=== PATIENT | male | born 1990 | race Caucasian/White ===

== ENCOUNTER 2022-04-07 10:12 | Outpatient (REF) | payer SELFPAY | END 2022-04-07 10:13 | disposition home or self-care (01) | LOC: LBN 10:12 | PROVIDERS: PCP Family Medicine; Visit Provider Physician Assistant | DX: J02.9 Acute pharyngitis, unspecified (principal) | CPT/HCPCS: 87070 ==

== ENCOUNTER 2022-07-04 15:30 | Emergency (ER) | payer BC, SELFPAY ==
[2022-07-04 15:41] VITALS: BP 133/67; PULSE 125; RESP 20; TEMP 38.3; O2SAT 98
[2022-07-04 16:00] VITALS: PULSE 92
--- NOTE | 2022-07-04 16:00 | DI.CT_ITS ---
Exam(s) CT ABDOMEN PELVIS W EXAM: CT ABDOMEN PELVIS W CLINICAL HISTORY: diarrhea, lower abdominal pain TECHNIQUE: Imaging Protocol: Axial computed tomography images with coronal and sagittal reformatted images were created and reviewed CONTRAST MATERIAL: Intravenous: Omnipaque 350 Contrast volume:100 mL Oral: No COMPARISON: No exams were available for comparison FINDINGS: ABDOMEN: Lung Bases: Normal where visualized. There is a small hiatal hernia. Liver: There is slight decreased attenuation of the liver suggesting fatty infiltration. No measurab le mass. Portal, Superior Mesenteric, and Splenic Veins: Unremarkable. Gallbladder and Biliary Tract: No radiodense calculus or dilation. Pancreas: Normal density, no abnormal calcifications or inflammatory process. Spleen: Normal. Adrenals: No masses seen. Kidneys: Normal size, contour and axis. No radiodense stones or obstructive uropathy. No masses seen. Abdominal Aorta: Abdominal portion non-dilated. Bowel: There are few scattered diverticula in the colon but no evidence of acute diverticulitis. The re is fluid seen in portions of the colon and small bowel which can be seen with a diarrheal illness. There is no evidence of bowel obstruction. No significant bowel wall thickening is present. Appen gustavo is unremarkable. Peritoneal Cavity: No ascites, collection or mesenteric inflammatory response. No free air. Lymph Nodes: There are mildly enlarged lymph nodes seen in the mesentery which are likely reactive. Bones: Within normal limits for the patient's age. Soft Tissues: Unremarkable. PELVIS: Bladder: Symmetric distention, no gross wall thickening. Reproductive Organs: Unremarkable as visualized. Lymph Nodes: No significant inguinal or iliac adenopathy. Bones: Within normal limits for the patient's age. IMPRESSION: 1. Fluid-filled loops of small and large intestine are noted which can be seen with a diarrheal illne ss. 2. Mildly enlarged mesenteric lymph nodes which are likely reactive. Mesenteric adenitis cannot be e xcluded. 3. No evidence of bowel obstruction or bowel wall thickening. RADIATION DOSE DELIVERED: 1,190.43mGy.cm Total DLP DATA REPOSITORY: All CT scans at this facility are submitted to the National Radiology Data Registry (NRDR) Dose Index Registry (DIR) with the [employer] (ACR). RADIATION OPTIMIZATION: All CT scans at this facility use at least one of these dose optimization te chniques: automated exposure control; mA and/or kV adjustment per patient size (includes targeted exa ms where dose is matched to clinical indication); or iterative reconstruction.
[2022-07-04 16:16] LABS: Abs Immature Grans 0.05 10^3/uL (0.0-0.06); Absolute Basophil Count 0.03 10^3/uL (0.0-0.2); Absolute Eosinophil Count 0.07 10^3/uL (0.0-0.7); Absolute Monocyte Count 1.01 10^3/uL (0.1-0.8); Absolute Neutrophil Count 12.29 10^3/uL (1.2-6.7); Basophils % 0.2; Eosinophils % 0.5; HCT 45.1 % (40.0-50.0); HGB 15.7 g/dL (13.5-17.5); Immature Grans % 0.4; Lymphocytes % 2.7; MCH 30.3 pg (27.0-33.0); MCHC 34.8 % (32.0-36.0); MCV 87 fL (80-95); MPV 10.8 fL (8.0-11.0); Monocytes % 7.3; Neutrophils % 88.9; Platelet Count 211 10^3/uL (130-400); RBC 5.19 10^6/uL (4.36-5.78); RDW 12.7 % (11.8-14.1); RDW-SD 40.7 fL; WBC 13.83 10^3/uL (4.4-10.8)
[2022-07-04 16:17] LABS: Absolute Lymphocyte Count 0.37 10^3/uL (1.2-3.4)
--- NOTE | 2022-07-04 16:17 | ED.GENADUL_ITS ---
Discharge Plan Disposition Patient Disposition: Home Condition: Stable Discharge Details Clinical Impression: Diarrhea Primary Care Provider: Ar Goldberg ED Provider: Rasheed Hubbard Home Meds and New Rx's Prescriptions: New ciprofloxacin HCl 500 mg tablet 500 mg PO BID Qty: 10 0RF Continued escitalopram oxalate [Lexapro] 10 mg tablet 10 mg PO HS Qty: 90 1RF Discharge Instructions Instructions: Acute Diarrhea (ED), Hypomagnesemia (ED) Additional Instructions: follow up with your primary care provider within 1 week if symptoms are not improving if you feel more ill, have severe abdominal pain or persistent vomiting return to the emergency department Stand Alone Forms: Work Release Medical Decision Making 31 yo male who denies chronic medical problems comes in with chief complaint of diarrhea since Monday and intermittent abdominal cramping and today started to have fevers. Denies recent travel, antibiotic use or known sick contacts. Went to [facility] care earlier and actually brought a stool sample to the lab for fecal bacterial pathogen testing. HE is hemodynamically stable on arrival with a fever, hr on my exam is 98. He is in no distress on exam caox4 speaking in full sentences. HE is tender in the llq with deep palpation, no right lower abdominal tenderness or upper abdominal tenderness and no guarding or distention. Suspect viral gastroenteritis, will evaluate further with cbc, cmp, lipase and obtain ct abd/pelvis to evaluate for diverticulitis labs show mag of 1.5 and otherwise benign labs. He is tolerating po, ct without concerning findings other than evidence of gastroenteritis. He is stable for d/c, will start on cipro since he's had almost a week of symptoms. Will f/u with his pcp and return precautions given Differential Diagnosis Differential Diagnosis: diverticulitis, colitis Imaging Data Radiologic Study: Attestation: I personally reviewed and interpreted this imaging study as follows: Imaging: CT Scan Radiologist's impression: IMPRESSION: 1. No evidence of bowel obstruction or significant bowel wall thickening. 2. Fluid noted throughout the small and large intestines, likely related to reported diarrhea. Clinical correlation recommended. Lab Data Lab results reviewed: Yes I reviewed the patient's lab results. HPI General Mode of arrival: ambulatory . Date/Time Provider Initiated Documentation: 07/04/22 15:48 . Limitations to Documentation: no limitations . Information obtained by: patient . History of Present Illness 31 year old M presents to the emergency department with the chief complaint of diarrhea, described as moderate, Patient started experiencing this day(s) (5) and it has been constant. No relieving factors improve symptom(s), No exacerbating factors reported . Patient notes fever/chills. Patient did receive the following treatments prior to arrival, none Related Data Home Medications Medication Instructions Recorded Confirmed escitalopram oxalate 10 mg tablet 10 mg PO HS #90 tabs 03/07/22 07/04/22 (Lexapro) ciprofloxacin HCl 500 mg tablet 500 mg PO BID #10 tabs 07/04/22 Previous Rx's Medication Instructions Recorded escitalopram oxalate 10 mg tablet 10 mg PO HS #90 tabs 03/07/22 (Lexapro) ciprofloxacin HCl 500 mg tablet 500 mg PO BID #10 tabs 07/04/22 Allergies Allergy/AdvReac Type Severity Reaction Status Date / Time Sulfa (Sulfonamide Allergy Unknown Unverified 07/04/22 11:21 Antibiotics) General Stated Complaint: Nausea/Vomit/Diar PIERRE: 3 Review of Systems All systems reviewed & are unremarkable except as noted in HPI and below Constitutional Constitutional: Denies chills, Denies fever(s) and Denies weakness Cardiovascular Cardiovascular: Denies chest pain and Denies dyspnea Respiratory Respiratory: Denies cough and Denies dyspnea Gastrointestinal Gastrointestinal: Denies nausea and Denies vomiting Musculoskeletal Musculoskeletal: Denies joint swelling Neurologic Neurologic: Denies weakness PFSH All Active Problems Diarrhea (Acute) Anxiety (Chronic) Encounter for annual physical exam (Acute) Suicidal ideation (Acute 08/16/17) Family history of suicide (Acute 08/30/17) father Depression (Acute 08/30/17) Alcohol abuse (Acute 08/30/17) Family History Mother No problems noted. Father , 56 Alcohol abuse Depression Sister No problems noted. Brother Substance abuse Maternal Grandfather Diabetes Heart disease Hypertension Paternal Grandfather Alcohol abuse Maternal Grandmother No problems noted. Paternal Grandmother No problems noted. Social History Smoking/Tobacco Use Status: Current every day Tobacco Type: cigarettes Quit status: considering quitting Second Hand Exposure: Yes Smoking risk assessment performed?: Yes Alcohol Intake: former Drug use: Daily Substance use type: marijuana Caregiver/Support person: No Household members: significant other and children Housing: house Communication Needs: Corrective Lenses Do you need help understanding health information?: Never Pets and animals: Yes Pets and animals: cat(s), dog(s) and farm animals Sexually active: Yes Do you think of yourself as: straight/heterosexual Current gender identity: male What is your relationship status?: living with partner How often do you talk on the phone with friends or family?: once per week How often do you get together with friends or relatives?: once per week Do you belong to any clubs or organized social groups?: no Panel score (0-1 are the most socially isolated patients): 1 Duration: 15-30 minutes/day Frequency: 1-2 times per week Dinone/Islam: Scientologist Special dionne needs: No Drive intox or ride w/intox automobile drivers: No Do you feel safe in your relationship?: Yes Exam Const General: no acute distress Orientation: alert HENMT Head: normal to inspection Ears: external ears normal General nose exam: external nose normal Mouth: moist mucous membranes Eyes General: appearance normal, both eyes and all related structures Neck Neck: normal visual inspection Resp Effort & Inspection: normal respiratory effort and able to speak in complete sentences Cardio Rate: regular rate GI Palpation: soft, not firm and no guarding Skin General skin exam: no rashes or lesions noted Neuro General: patient alert and patient oriented x3 Extrem General: normal to inspection Psych Mental Status: mental status grossly normal Course Vital Signs Vital signs: Vital Signs Temperature 38.3 C H 07/04/22 15:41 Pulse 125 H 07/04/22 15:41 Respiratory Rate 20 07/04/22 15:41 Blood Pressure 133/67 07/04/22 15:41 Pulse Oximetry 98 07/04/22 15:41 Temperature 38.3 C H 07/04/22 15:41 Temperature Source Tympanic 07/04/22 15:41 Pulse 92 H 07/04/22 16:00 Respiratory Rate 20 07/04/22 15:41 Respiratory Effort Normal, Non-Labored 07/04/22 15:56 Blood Pressure 133/67 07/04/22 15:41 Blood Pressure Position Sitting 07/04/22 15:41 Pulse Oximetry 98 07/04/22 15:41 Oxygen Delivery Method Room Air 07/04/22 15:41 Oxygen Flow Rate 0 07/04/22 15:41 Lab/Test Results Lab/Test Results: Laboratory Tests Range/Units 07/04/22 15:55 WBC (4.4-10.8) 10^3/uL 13.83 H RBC (4.36-5.78) 10^6/uL 5.19 Hgb (13.5-17.5) g/dL 15.7 Hct (40.0-50.0) % 45.1 MCV (80-95) fL 87 MCH (27.0-33.0) pg 30.3 MCHC (32.0-36.0) % 34.8 RDW (11.8-14.1) % 12.7 Plt Count (130-400) 10^3/uL 211 MPV (8.0-11.0) fL 10.8 Immature Gran % 0.4 Neutrophils % 88.9 Lymphocytes % 2.7 Monocytes % 7.3 Eosinophils % 0.5 Basophils % 0.2 Nucleated RBC % (0.0-0.3) % 0.0 Absolute Neutrophils (1.2-6.7) 10^3/uL 12.29 H Absolute Lymphocytes (1.2-3.4) 10^3/uL 0.37 L Absolute Monocytes (0.1-0.8) 10^3/uL 1.01 H Absolute Eosinophils (0.0-0.7) 10^3/uL 0.07 Absolute Basophils (0.0-0.2) 10^3/uL 0.03
[2022-07-04 16:32] LABS: ALT 69 U/L (16-63); AST 29 U/L (15-37); Albumin 4.3 g/dL (3.4-5.0); Alkaline Phosphatase 75 U/L (46-116); Anion Gap 8.5 mmol/L (3-11); BUN 14 mg/dL (7-18); Bilirubin, Total 0.9 mg/dL (0.2-1.0); CO2 27.5 mmol/L (21.0-32.0); Calcium 9.2 mg/dL (8.5-10.1); Chloride 100 mmol/L (98-107); Estimated GFR 103.19 (mL/min/1.73m2); Glucose 114 mg/dL (74-106); Lipase 16 U/L (16-77); Magnesium 1.5 mg/dL (1.8-2.4); Potassium 3.4 mmol/L (3.5-5.1); Sodium 136 mmol/L (136-145)
[2022-07-04 16:46] LABS: COVID-19 PCR Negative (Negative); Influenza A PCR Negative (Negative); Influenza B PCR Negative (Negative); RSV PCR Negative (Negative)
[2022-07-04 17:00] LABS: Source Nasopharynx
[2022-07-04] MEDS: Normal Saline - Diluent 50 ML VIAL IJ (17:01)
[2022-07-04] MEDS: Normal Saline Flush 10 ML SYR IVP (17:01)
[2022-07-04] MEDS: Omnipaque 350 MG/ML 100 ML BTL IJ (17:01)
--- NOTE | 2022-07-04 17:39 | DI.VRAD_ITS ---
PROCEDURE INFORMATION: Exam: CT Abdomen And Pelvis With Contrast Exam date and time: 07/04/2022 5:05 PM Age: 31 years old Clinical indication: Diarrhea, lower abdominal pain TECHNIQUE: Imaging protocol: Computed tomography of the abdomen and pelvis with contrast. Radiation optimization: All CT scans at this facility use at least one of these dose optimization techniques: automated exposure control; mA and/or kV adjustment per patient size (includes targeted exams where dose is matched to clinical indication); or iterative reconstruction. Contrast material: OMNIPAQUE 350; Contrast volume: 100 ml; Contrast route: INTRAVENOUS (IV); COMPARISON: No relevant prior studies available. FINDINGS: Liver: Unremarkable liver. No mass identified. Gallbladder and bile ducts: The gallbladder is unremarkable. No calcified stones. No ductal dilation. Pancreas: No ductal dilation. No pancreatic lesion seen. Spleen: No splenomegaly. Adrenal glands: The adrenal glands are unremarkable. No defined mass. Kidneys and ureters: The kidneys are unremarkable. No hydronephrosis. Stomach and bowel: There is fluid noted throughout the small and large intestines. No evidence of bowel obstruction. No significant bowel wall is both of hours. Appendix: No evidence of appendicitis. Intraperitoneal space: No free air. No significant fluid collection. Vasculature: No abdominal aortic aneurysm. Lymph nodes: No enlarged lymph nodes. Urinary bladder: Unremarkable as visualized. Reproductive: Unremarkable as visualized. Bones/joints: No acute fracture. A disc bulge is noted at the L5-S1 level asymmetric to the right. Soft tissues: Unremarkable. IMPRESSION: 1. No evidence of bowel obstruction or significant bowel wall thickening. 2. Fluid noted throughout the small and large intestines, likely related to reported diarrhea. Clinical correlation recommended. Dictated and Authenticated by: Sana Hernandez MD. Ordering:KP Iqbal MD
[2022-07-04] MEDS: Normal Saline 1,000 ML 1000 ML IV (18:06)
[2022-07-04 18:45] VITALS: BP 125/74; PULSE 97; RESP 18; TEMP 38; O2SAT 99
[2022-07-04] MEDS: Ciprofloxacin 500 MG TAB PO (18:46)
== END 2022-07-04 18:46 | disposition home or self-care (01) ==
PROVIDERS: Emergency Provider Emergency Medicine; PCP Family Medicine
DX: R19.7 Diarrhea, unspecified (principal); R11.2 Nausea with vomiting, unspecified
CPT/HCPCS: 36415; 80053; 83690; 87637; 96360; 99285; 74177; 83735; 85025; 99283; J3490

== ENCOUNTER 2022-07-04 15:50 | Outpatient (REF) | payer BC, SELFPAY ==
[2022-07-06 13:10] LABS: Campylobacter PCR Negative (Negative); Salmonella PCR Negative (Negative); Shiga Toxin PCR Negative (Negative); Shigella/Enteroinvasive Ecoli Negative (Negative)
== END 2022-07-04 15:51 | disposition home or self-care (01) ==
LOC: LBN 15:50
PROVIDERS: PCP Family Medicine; Visit Provider Nurse Practitioner Family
DX: R19.7 Diarrhea, unspecified (principal)
CPT/HCPCS: 87505; 87177

== ENCOUNTER 2023-10-05 09:44 | Inpatient (IN) | payer BC, SELFPAY ==
[2023-10-05] VITALS (25 sets, daily range): BP systolic 91–135; BP diastolic 35–70; PULSE 67–128; RESP 12–43; TEMP 36.5–37; O2SAT 93–100; BMI 33.2
--- NOTE | 2023-10-05 10:15 | DI.CT_ITS ---
Exam(s) CT ABDOMEN PELVIS W EXAM: CT ABDOMEN PELVIS W CLINICAL HISTORY: rectal pain 2 weeks TECHNIQUE: Imaging Protocol: Axial computed tomography images with coronal and sagittal reformatted images were created and reviewed. CONTRAST MATERIAL: Intravenous: Omnipaque 350 Contrast volume:100 mL Oral: No COMPARISON: CT CT ABDOMEN PELVIS W from 07/04/2022 FINDINGS: ABDOMEN: Lung Bases: Normal where visualized. Liver: Normal density. No measurable mass. Portal, Superior Mesenteric, and Splenic Veins: Unremarkable. Gallbladder and Biliary Tract: No radiodense calculus or dilation. Pancreas: Normal density, no abnormal calcifications or inflammatory process. Spleen: Normal. Adrenals: No masses seen. Kidneys: Normal size, contour and axis. No radiodense stones or obstructive uropathy. No masses seen. Abdominal Aorta: Abdominal portion non-dilated. Bowel: No obstruction or bowel wall thickening. There is a 4.7 by 2.2 by 2.9 cm fluid collection post erior to the rectum consistent with an abscess. There is a thin enhancing wall present. There is a normal appendix. Peritoneal Cavity: No ascites, collection or mesenteric inflammatory response. No free air. Lymph Nodes: Within normal limits. Bones: Within normal limits for the patient's age. Soft Tissues: Unremarkable. PELVIS: Bladder: Symmetric distention, no gross wall thickening. Reproductive Organs: Unremarkable as visualized. Lymph Nodes: Within normal limits. Bones: Within normal limits for the patient's age. IMPRESSION: 1. 4.7 x 2.2 x 2.9 cm posterior perirectal abscess. 2. Findings were discussed with Dr. Jolly at 11:08 a.m. on 10/05/2023. RADIATION DOSE DELIVERED: Total DLP DATA REPOSITORY: All CT scans at this facility are submitted to the National Radiology Data Registry (NRDR) Dose Index Registry (DIR) with the [employer] (ACR). RADIATION OPTIMIZATION: All CT scans at this facility use at least one of these dose optimization te chniques: automated exposure control; mA and/or kV adjustment per patient size (includes targeted exa ms where dose is matched to clinical indication); or iterative reconstruction.
--- NOTE | 2023-10-05 10:23 | W.ED.GENAD ---
Discharge Plan Disposition Patient Disposition: Admit to [facility] Condition: Serious Discharge Details Chief Complaint: GenMedical Clinical Impression: Perirectal abscess Primary Care Provider: Ar Goldberg ED Provider: Kali Jolly Home Meds and New Rx's Prescriptions: No Action hydrocortisone acetate [Anusol-HC] 25 mg suppository 25 mg ME BID PRN (Reason: hemorrhoids) Qty: 24 1RF lorazepam 1 mg tablet 1 mg PO DAILY PRN (Reason: panic attack(s)) Qty: 10 0RF venlafaxine 150 mg tablet extended release 24hr 300 mg PO DAILY Qty: 60 2RF HPI General Mode of arrival: ambulatory. Date/Time Provider Initiated Documentation: 10/05/23 10:02. Limitations to Documentation: no limitations. Information obtained by: patient. HPI Narrative: 33-year-old male here with rectal pain. Patient has a history of internal hemorrhoids. Over the past 2 weeks has had progressively worsening rectal pain. Hydrocortisone cream and suppository treatment not helping. No associated discharge. No bleeding. No fevers. No abdominal pain. Patient was seen at [facility] and had digital rectal exam and was exquisitely tender and sent to the ED for further evaluation including imaging. Related Data Home Medications ?Medication ?Instructions ?Recorded ?Confirmed hydrocortisone acetate 25 mg 25 mg ME BID PRN hemorrhoids #24 ea 06/22/23 10/05/23 rectal suppository (Anusol-HC) lorazepam 1 mg tablet 1 mg PO DAILY PRN panic attack(s) 07/24/23 10/05/23 #10 tabs venlafaxine 150 mg tablet,extended 300 mg (2 x 150 mg) PO DAILY PTSD 09/19/23 10/05/23 release 24 hr #60 tabs Previous Rx's ?Medication ?Instructions ?Recorded hydrocortisone acetate 25 mg 25 mg ME BID PRN hemorrhoids #24 ea 06/22/23 rectal suppository (Anusol-HC) lorazepam 1 mg tablet 1 mg PO DAILY PRN panic attack(s) 07/24/23 #10 tabs venlafaxine 150 mg tablet,extended 300 mg (2 x 150 mg) PO DAILY PTSD 09/19/23 release 24 hr #60 tabs Allergies Allergy/AdvReac Type Severity Reaction Status Date / Time Sulfa (Sulfonamide Allergy Unknown Unknown Unverified 10/05/23 09:52 Antibiotics) General Stated Complaint: GenMedical PIERRE: 3 Review of Systems Constitutional Constitutional: Denies fever(s) Gastrointestinal Gastrointestinal: Reports as per HPI Exam Const General: cooperative and no acute distress HENVT Mouth: moist mucous membranes Eyes Conjunctivae: normal conjunctivae Sclera: normal sclerae Resp Auscultation: clear to auscultation bilaterally, no rales, no rhonchi and no wheezes Cardio Rate: regular rate and not tachycardic Rhythm: regular rhythm GI Palpation: soft, not firm, no guarding, no masses, not rigid and nontender Rectal Exam: No fissure and hemorrhoids (small non thrombosed external hemorrhoid present and minimally tender) Skin General skin exam: no rashes or lesions noted Neuro General: patient alert, patient awake and tone normal Course Vital Signs Vital signs: Vital Signs Temperature 36.9 C 10/05/23 09:48 Pulse 84 10/05/23 09:48 Respiratory Rate 14 10/05/23 09:48 Blood Pressure 126/67 10/05/23 09:48 Pulse Oximetry 100 10/05/23 09:48 Temperature 36.9 C 10/05/23 10:10 Temperature Source Temporal Artery Scan 10/05/23 10:10 Pulse 84 10/05/23 10:10 Respiratory Rate 12 10/05/23 10:11 Respiratory Effort Normal, Non-Labored 10/05/23 10:16 Respiratory Depth Normal 10/05/23 10:11 Respiratory Pattern Normal 10/05/23 10:11 Blood Pressure 126/67 10/05/23 10:10 Blood Pressure Position Sitting 10/05/23 10:10 Pulse Oximetry 100 10/05/23 10:10 Oxygen Delivery Method Room Air 10/05/23 10:10 Oxygen Flow Rate 0 10/05/23 10:10 Pain Level 6 10/05/23 10:10 Comment took ibuprofen this morning 10/05/23 10:10 Medical Decision Making 1032 -- 33yo male with rectal pain worsening over the past 2 weeks. External hemorrhoid is present but I am concerned about the potential for deep space infection given exam and express care. Patient has no systemic symptoms. Patient is afebrile and hemodynamically stable. Plan to obtain CT of the abdomen and pelvis to assess for acute surgical pathology including perirectal abscess. 1204 --CT abdomen pelvis was interpreted by radiology: Perirectal abscess 5 x 3 cm. I called and spoke with on-call general surgeon, Dr. Sánchez, discussed ED presentation course, she will evaluate the patient with plan for OR intervention. I will initiate antibiotic coverage with Zosyn 4.5 g IV. Lab Data Lab results reviewed: Yes I reviewed the patient's lab results. Labs: Laboratory Tests Range/Units 10/05/23 10:04 WBC (4.4-10.8) 10^3/uL 17.53 H RBC (4.36-5.78) 10^6/uL 4.62 Hgb (13.5-17.5) g/dL 14.5 Hct (40.0-50.0) % 43.1 MCV (80-95) fL 93 MCH (27.0-33.0) pg 31.4 MCHC (32.0-36.0) % 33.6 RDW (11.8-14.1) % 13.2 Plt Count (130-400) 10^3/uL 265 MPV (8.0-11.0) fL 10.4 Immature Gran % % 0.3 Neutrophils % % 79.4 Lymphocytes % % 10.1 Monocytes % % 9.6 Eosinophils % % 0.3 Basophils % % 0.3 Nucleated RBC % (0.0-0.3) % 0.0 Absolute Neutrophils (1.2-6.7) 10^3/uL 13.92 H Absolute Lymphocytes (1.2-3.4) 10^3/uL 1.77 Absolute Monocytes (0.1-0.8) 10^3/uL 1.68 H Absolute Eosinophils (0.0-0.7) 10^3/uL 0.05 Absolute Basophils (0.0-0.2) 10^3/uL 0.05 RBC Morphology Normal Sodium (136-145) mmol/L 142 Potassium (3.5-5.1) mmol/L 3.8 Chloride (98-107) mmol/L 103 Carbon Dioxide (21.0-32.0) mmol/L 28.3 Anion Gap (3-11) mmol/L 10.7 BUN (7-18) mg/dL 15 Creatinine (0.70-1.30) mg/dL 1.0 Est GFR (CKD-EPI 2020) (mL/min/1.73m2) 101.92 Glucose (74-106) mg/dL 95 Calcium (8.5-10.1) mg/dL 9.3 Total Bilirubin (0.2-1.0) mg/dL 0.45 AST (15-37) U/L 19 ALT (16-63) U/L 34 Alkaline Phosphatase (46-116) U/L 84 Total Protein (6.4-8.2) g/dL 8.1 Albumin (3.4-5.0) g/dL 4.1 Quality:SDOH Health Related Social Needs: No Data to Display PFSH All Active Problems Perirectal abscess (Acute) External hemorrhoid (Acute) PTSD (post-traumatic stress disorder) (Acute) Adjustment disorder (Chronic) Anxiety (Chronic) Encounter for annual physical exam (Acute) Suicidal ideation (Acute 08/16/17) Family history of suicide (Acute 08/30/17) father Depression (Acute 08/30/17) Alcohol abuse (Acute 08/30/17) Family History Mother No problems noted. Father , 56 Alcohol abuse Depression Sister No problems noted. Brother Substance abuse Maternal Grandfather Diabetes Heart disease Hypertension Paternal Grandfather Alcohol abuse Maternal Grandmother No problems noted. Paternal Grandmother No problems noted. Social History Smoking/Tobacco Use Status: Current every day Tobacco Type: cigarettes Tobacco: How many years used: 15 Quit status: considering quitting Second Hand Exposure: Yes Smoking risk assessment performed?: Yes Alcohol Intake: former Drug use: Daily Substance use type: marijuana Caregiver/Support person: No Household members: significant other and children Housing: house Communication Needs: Corrective Lenses Do you need help understanding health information?: Never Pets and animals: Yes Pets and animals: cat(s), dog(s) and farm animals Sexually active: Yes Do you think of yourself as: straight/heterosexual Current gender identity: male What is your relationship status?: living with partner How often do you talk on the phone with friends or family?: once per week How often do you get together with friends or relatives?: once per week Do you belong to any clubs or organized social groups?: no Panel score (0-1 are the most socially isolated patients): 1 Duration: 15-30 minutes/day Frequency: 1-2 times per week Dionne/Gnosticist: [employer] Special dionne needs: No Drive intox or ride w/intox seasonal delivery driver: No Do you feel safe at home: Yes Do you feel safe in your relationship?: Yes
[2023-10-05] MEDS: Normal Saline - Diluent 50 ML VIAL IJ (10:33)
[2023-10-05] MEDS: Omnipaque 350 MG/ML 500 ML BTL-Imaging package 100 ML IJ (10:34)
[2023-10-05 10:40] LABS: Abs Immature Grans 0.06 10^3/uL (0.0-0.06); Absolute Eosinophil Count 0.05 10^3/uL (0.0-0.7); Absolute Lymphocyte Count 1.77 10^3/uL (1.2-3.4); Basophils % 0.3 %; Eosinophils % 0.3 %; HCT 43.1 % (40.0-50.0); HGB 14.5 g/dL (13.5-17.5); Immature Grans % 0.3 %; Lymphocytes % 10.1 %; MCH 31.4 pg (27.0-33.0); MCHC 33.6 % (32.0-36.0); MCV 93 fL (80-95); MPV 10.4 fL (8.0-11.0); Monocytes % 9.6 %; Neutrophils % 79.4 %; Platelet Count 265 10^3/uL (130-400); RBC 4.62 10^6/uL (4.36-5.78); RDW 13.2 % (11.8-14.1); RDW-SD 45.1 fL; WBC 17.53 10^3/uL (4.4-10.8)
[2023-10-05 10:41] LABS: Absolute Basophil Count 0.05 10^3/uL (0.0-0.2); Absolute Monocyte Count 1.68 10^3/uL (0.1-0.8); Absolute Neutrophil Count 13.92 10^3/uL (1.2-6.7)
[2023-10-05 10:54] LABS: Diff Comment Diff Reviewed; RBC Morphology Normal
[2023-10-05 11:01] LABS: ALT 34 U/L (16-63); AST 19 U/L (15-37); Albumin 4.1 g/dL (3.4-5.0); Alkaline Phosphatase 84 U/L (46-116); Anion Gap 10.7 mmol/L (3-11); BUN 15 mg/dL (7-18); Bilirubin, Total 0.45 mg/dL (0.2-1.0); CO2 28.3 mmol/L (21.0-32.0); Calcium 9.3 mg/dL (8.5-10.1); Chloride 103 mmol/L (98-107); Estimated GFR 101.92 (mL/min/1.73m2); Glucose 95 mg/dL (74-106); Potassium 3.8 mmol/L (3.5-5.1); Sodium 142 mmol/L (136-145); Total Protein 8.1 g/dL (6.4-8.2)
[2023-10-05] MEDS: PIPERACILLIN/TAZO 4.5 GM in Normal Saline 100 ML IVPB (11:27)
--- NOTE | 2023-10-05 12:02 | W.PM.HP.N ---
Date of service: 10/05/23 Time of Service: 12:02 Assessment and Plan Assessment and plan (1) Perirectal abscess: Status: Acute Assessment and plan: Currently the patient is hemodynamically stable. The recommendation was made for incision and drainage of perirectal abscess. The risk and benefits of procedure were explained to the patient. The patient accepted surgical intervention. -Incision and drainage of perirectal abscess in the operating room under anesthesia -IV antibiotics postoperatively -Pain control History of Present Illness History of Present Illness Chief Complaint: rectal pain Narrative: This patient is a 33-year-old male with past medical history of anxiety, depression and alcohol abuse. He presents emergency department today from urgent care with concern of perirectal pain for the last 2 weeks. He had been applying home cream however it intensified. In the emergency department the patient was found to have a white cell count of 17,000. CT scan of the abdomen and pelvis demonstrated a 5 cm x 3 cm rectal abscess posterior to the rectum. The patient admits to a history of chronic diarrhea. He has not been worked up for this. He denies any prior history of colonoscopy or prior history of perirectal abscess. Review of Systems All systems reviewed & are unremarkable except as noted in HPI and below PFSH All Active Problems Perirectal abscess (Acute) External hemorrhoid (Acute) PTSD (post-traumatic stress disorder) (Acute) Adjustment disorder (Chronic) Anxiety (Chronic) Encounter for annual physical exam (Acute) Suicidal ideation (Acute 08/16/17) Family history of suicide (Acute 08/30/17) father Depression (Acute 08/30/17) Alcohol abuse (Acute 08/30/17) Family History Mother No problems noted. Father , 56 Alcohol abuse Depression Sister No problems noted. Brother Substance abuse Maternal Grandfather Diabetes Heart disease Hypertension Paternal Grandfather Alcohol abuse Maternal Grandmother No problems noted. Paternal Grandmother No problems noted. Social History Smoking/Tobacco Use Status: Current every day Tobacco Type: cigarettes Tobacco: How many years used: 15 Quit status: considering quitting Second Hand Exposure: Yes Smoking risk assessment performed?: Yes Alcohol Intake: former Drug use: Daily Substance use type: marijuana Caregiver/Support person: No Household members: significant other and children Housing: house Communication Needs: Corrective Lenses Do you need help understanding health information?: Never Pets and animals: Yes Pets and animals: cat(s), dog(s) and farm animals Sexually active: Yes Do you think of yourself as: straight/heterosexual Current gender identity: male What is your relationship status?: living with partner How often do you talk on the phone with friends or family?: once per week How often do you get together with friends or relatives?: once per week Do you belong to any clubs or organized social groups?: no Panel score (0-1 are the most socially isolated patients): 1 Duration: 15-30 minutes/day Frequency: 1-2 times per week Dionne/Yarsani: Yazdanism Special dionne needs: No Drive intox or ride w/intox driver lifter of sanitation truck: No Do you feel safe at home: Yes Do you feel safe in your relationship?: Yes Meds Allergies and Home Medications Allergies Allergy/AdvReac Type Severity Reaction Status Date / Time Sulfa (Sulfonamide Allergy Unknown Unknown Unverified 10/05/23 09:52 Antibiotics) Home Medications ?Medication ?Instructions ?Recorded ?Confirmed ?Type hydrocortisone acetate 25 mg 25 mg [place] BID PRN hemorrhoids #24 ea 06/22/23 10/05/23 Rx rectal suppository (Anusol-HC) lorazepam 1 mg tablet 1 mg PO DAILY PRN panic attack(s) 07/24/23 10/05/23 Rx #10 tabs venlafaxine 150 mg tablet,extended 300 mg (2 x 150 mg) PO DAILY PTSD 09/19/23 10/05/23 Rx release 24 hr #60 tabs Exam Resp Effort & Inspection: normal respiratory effort and able to speak in complete sentences Auscultation: clear to auscultation bilaterally Cardio Rate: regular rate Rhythm: regular rhythm Heart Sounds: S1 normal and S2 normal GI Palpation: soft Rectal Exam: visual inspection normal (External hemorrhoid present) Other: Nontender Results Labs 10/05/23 10:04 10/05/23 10:04 Labs: Laboratory Results - last 24 hr 10/05/23 10:04 WBC 17.53 H RBC 4.62 Hgb 14.5 Hct 43.1 MCV 93 MCH 31.4 MCHC 33.6 RDW 13.2 Plt Count 265 MPV 10.4 Immature Gran % 0.3 Neutrophils % 79.4 Lymphocytes % 10.1 Monocytes % 9.6 Eosinophils % 0.3 Basophils % 0.3 Nucleated RBC % 0.0 Absolute Neutrophils 13.92 H Absolute Lymphocytes 1.77 Absolute Monocytes 1.68 H Absolute Eosinophils 0.05 Absolute Basophils 0.05 RBC Morphology Normal Sodium 142 Potassium 3.8 Chloride 103 Carbon Dioxide 28.3 Anion Gap 10.7 BUN 15 Creatinine 1.0 Est GFR (CKD-EPI 2020) 101.92 Glucose 95 Calcium 9.3 Total Bilirubin 0.45 AST 19 ALT 34 Alkaline Phosphatase 84 Total Protein 8.1 Albumin 4.1 Last Vital Signs Temp 98.4 F 10/05/23 10:10 Pulse 76 10/05/23 11:19 Resp 12 10/05/23 11:19 BP 119/53 L 10/05/23 11:19 Pulse Ox 99 10/05/23 11:19 Time Spent Time spent with Patient: 40-54 minutes Time was spent: preparing to see the patient(eg.review tests), obtaining and/or reviewing separately otained hiistory, ordering medications,tests, procedures, referring, communicating with other health dog daycare provider, indepentently interpreting results, counseling the patient and care coordination
--- NOTE | 2023-10-05 12:26 | ANES.PREOP_ITS ---
General Info Date of Service Date Performed: 10/05/23 Height: 5 ft 9 in Weight: 102.058 kg Body Mass Index (BMI): 33.2 Surgical Procedure: Operation Date: 10/05/23 13:10 Proposed Procedure Side Surgeon p Excision-Tamy Rectal Abscess Eri Sánchez, Meds Allergies and Home Medications Allergies Allergy/AdvReac Type Severity Reaction Status Date / Time Sulfa (Sulfonamide Allergy Unknown Unknown Unverified 10/05/23 09:52 Antibiotics) Home Medication ?Medication ?Instructions ?Recorded hydrocortisone acetate 25 mg 25 mg [place] BID PRN hemorrhoids #24 ea 06/22/23 rectal suppository (Anusol-HC) lorazepam 1 mg tablet 1 mg PO DAILY PRN panic attack(s) 07/24/23 #10 tabs venlafaxine 150 mg tablet,extended 300 mg (2 x 150 mg) PO DAILY PTSD 09/19/23 release 24 hr #60 tabs Current Visit Medications: Current Medications Generic Name Dose Route Start Last Admin Trade Name Freq PRN Reason Stop Dose Admin Docusate Sodium 100 mg 10/05/23 14:00 Docusate Sodium 100 Mg Cap PO TID GINNY Enoxaparin Sodium 40 mg 10/05/23 12:00 Enoxaparin 40 Mg/0.4 Ml Syr SC Q24H GINNY Sodium Chloride 1,000 mls @ 75 mls/hr 10/05/23 12:00 Saline 1000ml Bag IV INFUSION REPLACED BY [facility] IV Miscellaneous Supplies 1 each 10/05/23 12:00 Iv Access IV DIRECTED GINNY Morphine Sulfate 2 mg 10/05/23 11:57 Morphine 2 Mg/Ml Syr IVP Q1H PRN PRN Ondansetron HCl 4 mg 10/05/23 11:57 Ondansetron 4 Mg/2 Ml Vial IVP Q4H PRN PRN Pantoprazole Sodium 40 mg 10/05/23 12:00 Pantoprazole 40 Mg Vial IVP Q24H GINNY Sodium Chloride 0 ml 10/05/23 11:57 Normal Saline Flush 10 Ml Syr IVP PRN PRN Sodium Chloride 0 ml 10/05/23 20:00 Normal Saline Flush 10 Ml Syr IVP BID GINNY Sodium Chloride 0 ml 10/05/23 11:57 Normal Saline 10 Ml Vial IJ DIRECTED PRN Tramadol HCl 50 mg 10/05/23 11:57 Tramadol 50 Mg Tab PO Q6H PRN PRN Pain PFSH Active Problems Active Problems: Problem Status Onset Code Perirectal abscess Acute K61.1 External hemorrhoid Acute K64.4 PTSD (post-traumatic stress disorder) Acute F43.10 Adjustment disorder Chronic F43.20 Anxiety Chronic F41.9 Encounter for annual physical exam Acute Z00.00 Suicidal ideation Acute 08/16/17 R45.851 Family history of suicide Acute 08/30/17 Z81.8 Depression Acute 08/30/17 F32.9 Alcohol abuse Acute 08/30/17 F10.10 Tobacco Smoking/Tobacco Use Status: Current every day Tobacco Type: cigarettes Passive smoking exposure: No Second hand exposure: Yes Alcohol Alcohol Intake: former Substance Use Substance use: Daily Substance use type: marijuana Vital Signs and Lab Results Vital Signs Most Recent Vital Signs in EMR: Most Recent Vital Signs Temp Pulse Resp BP Pulse Ox 37.0 C 82 16 126/62 99 10/05/23 12:11 10/05/23 12:11 10/05/23 12:11 10/05/23 12:11 10/05/23 12:11 Lab Results 10/05/23 10:04 10/05/23 10:04 Blood Type / Crossmatch: 2 No Data to Display Complete Blood Count: 2 White Blood Count 17.53 10^3/uL (4.4-10.8) H 10/05/23 10:04 Red Blood Count 4.62 10^6/uL (4.36-5.78) 10/05/23 10:04 Hemoglobin 14.5 g/dL (13.5-17.5) 10/05/23 10:04 Hematocrit 43.1 % (40.0-50.0) 10/05/23 10:04 Platelet Count 265 10^3/uL (130-400) 10/05/23 10:04 Complete Metabolic Panel: 2 Sodium 142 mmol/L (136-145) 10/05/23 10:04 Potassium 3.8 mmol/L (3.5-5.1) 10/05/23 10:04 Chloride 103 mmol/L (98-107) 10/05/23 10:04 Carbon Dioxide 28.3 mmol/L (21.0-32.0) 10/05/23 10:04 BUN 15 mg/dL (7-18) 10/05/23 10:04 Creatinine 1.0 mg/dL (0.70-1.30) 10/05/23 10:04 Est GFR (CKD-EPI 2020) 101.92 (mL/min/1.73m2) 10/05/23 10:04 Calcium 9.3 mg/dL (8.5-10.1) 10/05/23 10:04 Albumin 4.1 g/dL (3.4-5.0) 10/05/23 10:04 Glucose 95 mg/dL (74-106) 10/05/23 10:04 Liver Function Panel: 2 Alanine Aminotransferase (ALT/SGPT) 34 U/L (16-63) 10/05/23 10: 04 Aspartate Amino Transf (AST/SGOT) 19 U/L (15-37) 10/05/23 10:04 Coagulation Panel: 2 No Data to Display Cardiac Panel: 2 No Data to Display Arterial Blood Gas: 2 No Data to Display Venous Blood Gas: 2 No Data to Display Pancreas Panel: 2 No Data to Display Thyroid Panel: 2 No Data to Display Infectious Disease: 2 No Data to Display Blood Cultures: 2 No Data to Display Toxicology Panel: 2 No Data to Display Anesthesia Assessment and Plan Anesthesia History Personal History: No History of General Anesthesia Family History: No Family History of Anesthesia Complications Exercise Tolerance Exercise Tolerance: Metabolic Equivalents>4 Pertinent Negatives Pertinent Negatives: No Symptoms of GERD, No Major Cardiovascular Symptoms or Complaints, No Major Pulmonary Symptoms or Complaints and No History of CVA/TIA Cardiac & Pulmonary Exam Cardiac Exam: Normal S1/S2 Heart Sounds Pulmonary Exam: Clear Bilateral Breath Sounds Implantable Cardiac Device Does patient have a Pacemaker or an ICD?: No Airway Exam Known Difficult Airway: No Mallampati Class: 1 Mouth Opening: Normal (> 3cm) Thyromental Distance: Greater than 3 cm Facial Hair: Full Martell Neck Range of Motion: Full ROM Neck Circumference: Normal Teeth Condition: Normal Dentition ASA Classification ASA Score: ASA 2 Emergency Case?: No NPO Status NPO Status: NPO Clears >2 hours, Solids >8 hours Anesthesia Plan Resuscitation Status: Full Code Anesthesia Technique: General Anesthesia Airway Planned: LMA Monitors Used: Standard Monitors
[2023-10-05] MEDS: Lactated Ringers 1,000 ML 30 ML IV (13:05)
[2023-10-05] MEDS: Bupivacaine 0.25% Pres-Free W/EPI 30 ML VIAL (13:50)
--- NOTE | 2023-10-05 13:57 | W.PM.OP ---
Date of service: 10/05/23 Time of Service: 13:57 Operative Note Operative Note DATE OF PROCEDURE: 10/05/23 PRE-OP DIAGNOSIS: Perirectal abscess POST-OP DIAGNOSIS: same PROCEDURE: Incision and drainage of perirectal abscess under anesthesia SURGEON: Eri Sánchez ANESTHESIA TYPE: Local By Surgeon and General LMA/ETT Refer to Anesthesia Record Patient was transported to: PACU Patient's condition: stable Indications: This patient is a 33-year-old male who presents to the emergency department with signs and symptoms of a perirectal abscess. This was confirmed on CT scan. He also presented with a white leukocytosis of 17,000. After complete history and physical examination was performed incision and drainage of perirectal abscess was recommended. The risk and benefits of procedure were explained to the patient. Informed consent was obtained and placed on the chart. Findings: Perirectal abscess posterior to the rectum Procedure Description: The patient was brought to the operating room where he was placed on the operating table in the supine position. After adequate general endotracheal anesthesia was administered by the department of anesthesia the patient was repositioned in lithotomy position. The perineum was prepped and draped in standard sterile fashion. A timeout was performed to confirm the site of surgery. A digital rectal examination was performed there are no masses or lesions palpated within the rectal vault. The patient did have swelling and fullness on the posterior aspect of the rectum. Anal retractor was inserted. Purulent drainage from the posterior aspect of the rectum was visualized. Excess purulent drainage was suctioned. The point of drainage was seen on the posterior wall of the rectum. Cultures were taken. The posterior rectum and surrounding tissue was anesthetized with local anesthetic. An #11 blade scalpel was used to make incision. The abscess cavity was copiously irrigated. Excess irrigation was suctioned. Hemostasis was achieved with pressure. Anal retractors were removed. The perineum was then clean and dry sterile dressings were applied patient tolerated procedure well.
--- NOTE | 2023-10-05 14:39 | W.ANESPOSTOP ---
Postoperative Evaluation Date, Time and Location Date Performed: 10/05/23 Time Performed: 14:39 Patient Location: PACU Vital Signs Most Recent Imported Vital Signs: Most Recent Vital Signs Temp Pulse Resp BP Pulse Ox 36.7 C 92 H 29 H 127/65 96 10/05/23 14:35 10/05/23 14:35 10/05/23 14:35 10/05/23 14:35 10/05/23 14:35 Pain Score Most Recent Pain Score: Most Recent Pain Score Pain Level 0 10/05/23 14:35 Assessment Mental Status: Awake (Alert & Oriented to Patient Baseline) Airway and Respiratory Function: Patent airway with normal (patient baseline) respiratory exam Cardiovascular Function: Hemodynamically Stable Hydration Status: Adequately Hydrated Nausea & Vomiting: No Nausea or Vomiting Pain: Pain is tolerable per patient Peripheral Nerve Block: Patient did not receive a nerve block
[2023-10-05] MEDS: Enoxaparin 40 MG/0.4 ML SYR SC (15:58)
[2023-10-05] MEDS: Docusate Sodium 100 MG CAP PO (15:58)
[2023-10-05] MEDS: Normal Saline 1,000 ML 75 ML IV (16:00)
--- NOTE | 2023-10-05 16:03 | DSE_ITS ---
Date of service: 10/05/23 Time of Service: 16:03 DS: Diagnosis Discharge Diagnosis (1) Perirectal abscess: Status: Acute Discharge Plan Disposition Patient Disposition: Home Condition: Improving Discharge Details Reason For Visit: from UC/rectal infection Admit Date/Time: 10/05/23 15:00 Admit Provider: Eri Sánchez Attending Provider: Eri Sánchez Primary Care Provider: Ar Goldberg Hospital Course Hospital Course: 33 yo M presented with signs and symptoms of perirectal abscess. On presentation the patient was afebrile with a wbc of 17K. He underwent an uneventful I&D of the perirectal abscess. The recommendation for IV abx and observation overnight however the patient declined. He will be discharged with cipro/flagyl for 7 days. He was advised to follow up in the office in 1 - 2 weeks. Outpatient Colonscopy was recommended for further workup. Home Meds and New Rx's Prescriptions: New docusate sodium [Colace] 100 mg Capsule 100 mg PO BID 7 Days Qty: 14 0RF amoxicillin-pot clavulanate [Augmentin] 500-125 mg tablet 1 tab PO BID 7 Days Qty: 14 0RF Discontinued hydrocortisone acetate [Anusol-HC] 25 mg suppository 25 mg [place] BID PRN (Reason: hemorrhoids) Qty: 24 1RF No Action lorazepam 1 mg tablet 1 mg PO DAILY PRN (Reason: panic attack(s)) Qty: 10 0RF venlafaxine 150 mg tablet extended release 24hr 300 mg PO DAILY Qty: 60 2RF Discharge Instructions Instructions: Anal Abscess and Fistula, Adult (DC) Additional Instructions: may due sitz baths use tylenol and motrin for pain cipro/flagyl for 7 days follow up in the surgery office in 1 - 2 weeks colonoscopy in next few weeks recommended for further workup Activity:: Activity as Tolerated Equipment/Supplies:: No Equipment Needed Diet:: As Tolerated Discharge Orders Discharge Orders: Discharge Order (Routine); Ordered 10/05/23 Ordered By: Eri Sánchez DS: Summary Summary Time spent discussing smoking cessation with patient: 3 to 10 minutes Time Spent with Patient providing and/or coordinating discharge services: Less than 30 minutes Status at Discharge Functional status at discharge: independent ambulation Overall status at discharge: patient is back to baseline Mental Status: mental status grossly normal Speech and Movement: speech and movement normal Mood: congruent mood Affect: normal affect Quality:SDOH Health Related Social Needs: No Data to Display Exam Resp Effort & Inspection: normal respiratory effort and able to speak in complete sentences Auscultation: clear to auscultation bilaterally GI Inspection: normal to inspection Other: s/p I&D of perirectal abscess Psych Mental Status: mental status grossly normal Speech and Movement: speech and movement normal Mood: congruent mood Affect: normal affect DS: Data Vitals/I&O Vitals and I&O: Vital Signs Temperature 98.4 F 10/05/23 15:31 Temperature Source Temporal Artery Scan 10/05/23 15:31 Pulse 67 10/05/23 15:31 Pulse 93 H 10/05/23 14:41 Respiratory Rate 18 10/05/23 15:31 Respiratory Effort Normal, Non-Labored 10/05/23 12:11 Respiratory Depth Normal 10/05/23 12:11 Respiratory Pattern Normal 10/05/23 12:11 Blood Pressure 134/69 10/05/23 15:31 Blood Pressure Mean 82 10/05/23 14:40 Blood Pressure Position Supine 10/05/23 12:11 Pulse Oximetry 96 10/05/23 15:31 Respiratory End-tidal CO2 31 10/05/23 14:41 Oxygen Delivery Method Room Air 10/05/23 15:31 Oxygen Flow Rate 0 10/05/23 15:31 Pain Level 0 10/05/23 15:31 Comment took ibuprofen this morning 10/05/23 10:10 Intake & Output 10/04/23 10/05/23 10/05/23 23:59 11:59 23:59 Intake Total 110 / 710 600 / 710 Balance 110 / 710 600 / 710 Weight 102.058 kg 102.058 kg Intake: IV 110 / 710 600 / 710 Other: Emesis Description None Data Completed and Pending Labs on day of discharge: Labs from last 24 hours 10/05/23 10:04 WBC 17.53 H RBC 4.62 Hgb 14.5 Hct 43.1 MCV 93 MCH 31.4 MCHC 33.6 RDW 13.2 Plt Count 265 MPV 10.4 Immature Gran % 0.3 Neutrophils % 79.4 Lymphocytes % 10.1 Monocytes % 9.6 Eosinophils % 0.3 Basophils % 0.3 Nucleated RBC % 0.0 Absolute Neutrophils 13.92 H Absolute Lymphocytes 1.77 Absolute Monocytes 1.68 H Absolute Eosinophils 0.05 Absolute Basophils 0.05 RBC Morphology Normal Sodium 142 Potassium 3.8 Chloride 103 Carbon Dioxide 28.3 Anion Gap 10.7 BUN 15 Creatinine 1.0 Est GFR (CKD-EPI 2020) 101.92 Glucose 95 Calcium 9.3 Total Bilirubin 0.45 AST 19 ALT 34 Alkaline Phosphatase 84 Total Protein 8.1 Albumin 4.1 10/05/23 13:30 Perirectal Surgical Culture - Pending 10/05/23 13:30 Perirectal Anaerobic Culture - Pending Preliminary micro results at discharge 10/05/23 13:30 Surgical Culture - Pending Perirectal 10/05/23 13:30 Anaerobic Culture - Pending Perirectal PFSH All Active Problems Perirectal abscess (Acute) External hemorrhoid (Acute) PTSD (post-traumatic stress disorder) (Acute) Adjustment disorder (Chronic) Anxiety (Chronic) Encounter for annual physical exam (Acute) Suicidal ideation (Acute 08/16/17) Family history of suicide (Acute 08/30/17) father Depression (Acute 08/30/17) Alcohol abuse (Acute 08/30/17) Family History Mother No problems noted. Father , 56 Alcohol abuse Depression Sister No problems noted. Brother Substance abuse Maternal Grandfather Diabetes Heart disease Hypertension Paternal Grandfather Alcohol abuse Maternal Grandmother No problems noted. Paternal Grandmother No problems noted. Social History Smoking/Tobacco Use Status: Current every day Tobacco Type: cigarettes Tobacco: How many years used: 15 Quit status: considering quitting Second Hand Exposure: Yes Smoking risk assessment performed?: Yes Alcohol Intake: former Drug use: Daily Substance use type: marijuana Caregiver/Support person: No Household members: significant other and children Housing: house Communication Needs: Corrective Lenses Do you need help understanding health information?: Never Pets and animals: Yes Pets and animals: cat(s), dog(s) and farm animals Sexually active: Yes Do you think of yourself as: straight/heterosexual Current gender identity: male What is your relationship status?: living with partner How often do you talk on the phone with friends or family?: once per week How often do you get together with friends or relatives?: once per week Do you belong to any clubs or organized social groups?: no Panel score (0-1 are the most socially isolated patients): 1 Duration: 15-30 minutes/day Frequency: 1-2 times per week Dionne/Protestant: Scientologist Special dionne needs: No Drive intox or ride w/intox oil truck driver: No Do you feel safe at home: Yes Do you feel safe in your relationship?: Yes Time Spent with Patient Time Spent with Patient: <45 minutes Time was spent: preparing to see the patient(eg.review tests), ordering medications,tests, procedures, referring, communicating with other health caregiver assisted living and counseling the patient
[2023-10-05] MEDS: ERTAPENEM 1 GM in Normal Saline 50 ML IVPB (16:09)
[2023-10-05] MEDS: Pantoprazole 40 MG VIAL IVP (16:10)
[2023-10-05] MEDS: Nicotine 7 MG/24 HR PATCH TD (16:29)
== END 2023-10-05 17:26 | disposition home or self-care (01) | DRG 346 ==
LOC: ER 12:10 → DSU 13:55 → MS 16:05 → DSU 10-06 08:22 → ER 10-06 08:22 → MS 10-06 08:23
PROVIDERS: Admitting Provider Surgery; Emergency Provider Student in an Organized Health Care Education/Training Program; PCP Family Medicine; Visit Provider Surgery
PROC: 0D9P7ZZ Drainage of Rectum, Via Natural or Artificial Opening (ICD-10-PCS; CPT 46040; principal; 2023-10-05 13:00)
DX: K61.1 Rectal abscess (principal); F43.10 Post-traumatic stress disorder, unspecified; Z81.8 Family history of other mental and behavioral disorders; F17.210 Nicotine dependence, cigarettes, uncomplicated; F12.90 Cannabis use, unspecified, uncomplicated; K64.4 Residual hemorrhoidal skin tags; F43.23 Adjustment disorder with mixed anxiety and depressed mood; F10.11 Alcohol abuse, in remission
CPT/HCPCS: 46040; 00123; 36415; 80053; 96365; 99285; J1650; 74177; 85025; 87070; 87075; 87205; J1100; J1335; J2250; J2405; J2470; J2543; J2704